=== PATIENT | female | born 1965 | race Caucasian/White ===

== ENCOUNTER 2017-03-04 14:19 | Inpatient (IN) | payer MEDICAID ==
[~2017-03-04] VITALS: Ht 160 cm; Wt 58.5 kg
[2017-03-04 15:14] LABS: BASOPHIL % 0.5 % (0-2); RED CELL DISTRIBUTION WIDTH 13.2 % (11.5-14.5)
[2017-03-04 15:17] LABS: PLATELET COUNT 121 x10^3mcL (130-400)
[2017-03-04 15:19] LABS: CALCIUM 9.4 mg/dL (8.5-10.1); CARBON DIOXIDE 25.9 mmol/L (21-32); CHLORIDE SERUM 104 mmol/L (98-107); CREATININE SERUM 0.7 mg/dL (0.6-1.0); GFR1 > 60 mL/min; GLUCOSE SERUM 108 mg/dL (74-106); POTASSIUM SERUM 4.6 mmol/L (3.5-5.1); SODIUM SERUM 140 mmol/L (136-145)
[2017-03-04 15:30] LABS: ALBUMIN 3.8 g/dL (3.4-5.0); ALKALINE PHOSPHATASE 109 U/L (46-116); ALT/SGPT 64 U/L (14-59); AST/SGOT 29 U/L (15-37); BILIRUBIN TOTAL 0.5 mg/dL (0.20-1.00); CHOLESTEROL 188 mg/dL (<200); HDL CHOLESTEROL 84 mg/dL (40-60); MAGNESIUM 1.8 mg/dL (1.8-2.4); TOTAL PROTEIN, SERUM 7.5 g/dL (6.4-8.2)
[2017-03-04 18:25] LABS: PHOSPHOROUS 2.2 mg/dL (2.5-4.9)
[2017-03-04 18:26] LABS: CHOLESTEROL/HDL RATIO 2.3
[2017-03-04 18:35] LABS: FREE T4 1.19 ng/dL (0.76-1.46); FREE THYROXINE INDEX 3.3 ug/dL (1.4-4.5); T4(THYROXINE) 9.5 ug/dL (4.7-13.3)
[2017-03-04 19:57] LABS: T3 TOTAL 1.03 ng/mL
[2017-03-04 20:29] VITALS: BP 108/61
[2017-03-05 05:42] VITALS: BP 105/51
[2017-03-05 06:09] LABS: BASOPHIL % 0.8 % (0-2); RED CELL DISTRIBUTION WIDTH 13.5 % (11.5-14.5)
[2017-03-05 06:11] LABS: microscopic required? NO
[2017-03-05 06:19] LABS: urine erythrocyte NEGATIVE (NEGATIVE)
[2017-03-05 06:20] LABS: CALCIUM 8.8 mg/dL (8.5-10.1); CARBON DIOXIDE 30.4 mmol/L (21-32); CHLORIDE SERUM 112 mmol/L (98-107); CREATININE SERUM 0.7 mg/dL (0.6-1.0); GFR1 > 60 mL/min; GLUCOSE SERUM 92 mg/dL (74-106); MAGNESIUM 1.9 mg/dL (1.8-2.4); PHOSPHOROUS 4.3 mg/dL (2.5-4.9); POTASSIUM SERUM 4.4 mmol/L (3.5-5.1); SODIUM SERUM 146 mmol/L (136-145)
[2017-03-05 06:26] LABS: PLATELET COUNT 109 x10^3mcL (130-400)
[2017-03-05 06:36] LABS: AMPHETAMINE QUAL UR NONE DETECTED (NEG <=1000)
[2017-03-05] MEDS ORDERED: MOTION SICKNESS25 M4 PO (12:59)
[2017-03-05] MEDS ORDERED: SCOP TD (13:00)
[2017-03-05 13:43] VITALS: BP 105/51
[2017-03-05 14:35] VITALS: BP 104/53
== END 2017-03-05 14:47 | disposition home health service (06) | DRG 111 ==
LOC: ED 14:19 → DU 17:14
PROVIDERS: Emergency Medicine; ADMIT Family Medicine
DX: H81.10 Benign paroxysmal vertigo, unspecified ear (principal); R65.10 Systemic inflammatory response syndrome (SIRS) of non-infectious origin without acute organ dysfunction; E83.39 Other disorders of phosphorus metabolism; R74.0 Nonspecific elevation of levels of transaminase and lactic acid dehydrogenase [LDH]; Z68.22 Body mass index [BMI] 22.0-22.9, adult
CPT/HCPCS: 83880; 84439; 90658; J2550; J7030; J8597; Q0092